=== PATIENT | male | born 1990 | race Caucasian/White ===

== ENCOUNTER 2019-09-27 06:43 | Day surgery (SDC) | payer BC ==
[2019-09-27] MEDS ORDERED: Lactated Ringers 1,000 ML IV SCH (07:00)
[2019-09-27] MEDS ORDERED: fentaNYL 100 MCG/2 ML SDV ONE (07:22)
[2019-09-27] MEDS ORDERED: Propofol 200 MG/20 ML SDV ONE ×2 (07:22→09:16)
[2019-09-27] MEDS ORDERED: Phenylephrine 1% 10 MG/ML SDV ONE (09:16)
--- NOTE | 2019-09-27 12:55 | OR ---
PREOPERATIVE DIAGNOSIS: Dysphagia and odynophagia. POSTOPERATIVE DIAGNOSIS: Dysphagia and odynophagia. PROCEDURE: Esophagogastroduodenoscopy with forceps biopsy. ANESTHESIA: Monitored anesthesia care. ESTIMATED BLOOD LOSS: Nil. FINDINGS: Mild antral inflammation with distal esophageal inflammation. DETAILS OF PROCEDURE: After obtaining informed consent, the patient was brought to the endoscopy suite and time-out was called. Anesthesia was given and the well-lubricated scope was introduced into the esophagus and advanced through the stomach and into the second portion of the duodenum. There was mild antritis which was biopsied with forceps, and there was mild distal esophagitis, which was likewise biopsied with forceps. The scope was removed and the patient tolerated the procedure well. CJM: 09/27/2019 09:47:31 MODL: 09/27/2019 12:08:54 /[id number]
== END 2019-09-27 11:05 | disposition home or self-care (01) ==
LOC: VM.SDS 06:43
PROVIDERS: ATTEND Surgery
DX: K20.0 Eosinophilic esophagitis (principal); K29.50 Unspecified chronic gastritis without bleeding; J45.40 Moderate persistent asthma, uncomplicated; F17.220 Nicotine dependence, chewing tobacco, uncomplicated; M51.36 Other intervertebral disc degeneration, lumbar region; M47.817 Spondylosis without myelopathy or radiculopathy, lumbosacral region; Z88.2 Allergy status to sulfonamides; Z91.09 Other allergy status, other than to drugs and biological substances; Z79.51 Long term (current) use of inhaled steroids; Z79.899 Other long term (current) drug therapy
CPT/HCPCS: 43239; J2704; J3010; J7120; J2370

== ENCOUNTER 2025-05-10 11:46 | Emergency (ER) | payer BC ==
[2025-05-10] MEDS: Diphtheria,Pertussis(Acell),Tetanus Vaccine 0.5 ML Syringe IM ONE (12:34)
== END 2025-05-10 12:43 | disposition home or self-care (01) ==
LOC: VM.ED 11:46
DX: S81.011A Laceration without foreign body, right knee, initial encounter (principal); Z88.2 Allergy status to sulfonamides; Z88.8 Allergy status to other drugs, medicaments and biological substances; Z79.899 Other long term (current) drug therapy; J45.909 Unspecified asthma, uncomplicated; W13.2XXA Fall from, out of or through roof, initial encounter
CPT/HCPCS: 12002; 90471; 90715; 99282-25; 99283; J2003